=== PATIENT | female | born 1990 | race African-American/Black ===

== ENCOUNTER 2022-11-21 13:21 | Emergency (ER) | payer BC ==
[~2022-11-21] VITALS: Ht 157.5 cm; Wt 56.7 kg
[2022-11-21] MEDS ORDERED: IV NORMAL SALINE 1000 ML BAG IV ONE (15:15)
[2022-11-21 15:37] LABS: MEAN CORPUSCULAR HEMOGLOBIN 28.8 uug (24.7-32.8); MEAN CORPUSCULAR VOLUME 87.3 fL (75.5-95.3); PLATELET COUNT (AUTO) 326 K/uL (179-408)
[2022-11-21 15:53] LABS: CARBON DIOXIDE 25 mmol/L (21-32); CHLORIDE 101 mmol/L (98-107); CREATININE 0.6 mg/dL (0.6-1.3); GLUCOSE 81 mg/dL (74-106); UREA NITROGEN, BLOOD 7 mg/dL (7-18)
[2022-11-21 16:06] LABS: ALANINE AMINOTRANSFERASE 24 U/L (14-59); ALKALINE PHOSPHATASE 62 U/L (50-136); ASPARTATE AMINOTRANSFERASE 17 U/L (15-37); BILIRUBIN,DIRECT 0.1 mg/dL (0.0-0.2); BILIRUBIN,TOTAL 0.2 mg/dL (0.2-1.0); TOTAL PROTEIN, SERUM 7.5 g/dL (6.4-8.2)
[2022-11-21] MEDS ORDERED: SWABABLE VALVE TRANSFER SET EA MC ONE (17:20)
[2022-11-21] MEDS ORDERED: IV NORMAL SALINE 250 ML BAG ONE (17:20)
[2022-11-21] MEDS ORDERED: IOHEXOL 350 100 ML INFUS..BTL ONE ×2 (17:20→18:18)
--- NOTE | 2022-11-21 19:15 | NUR ---
Recieved report from Kateryna NIETO.
--- NOTE | 2022-11-21 19:37 | NUR ---
Patient discharged to home in stable condition. Written and verbal after care instructions given. Patient verbalizes understanding of instructions. Stressed follow up or return to ER for worsening s/s. Patient walked out with steady gait.
[2022-11-21 19:55] VITALS: BP 108/78
== END 2022-11-21 19:45 | disposition home or self-care (01) ==
LOC: ER 13:21
DX: O26.891 Other specified pregnancy related conditions, first trimester (principal); R07.89 Other chest pain; R06.00 Dyspnea, unspecified; Z3A.09 9 weeks gestation of pregnancy
CPT/HCPCS: 99285; 93970; 96360; 71275; 71045; 96361; 80076; 80048; 83880; 85025; 85379; 85730; 86850; 86900; 86901; 84484; 36415; 93005; Q9967 ×2; J7040; A4663